=== PATIENT | male | born 1955 | race Caucasian/White ===

== ENCOUNTER → 2019-03-03 13:58 | Outpatient (CLI) | payer OTHER, SELFPAY ==
[2019-03-03 14:35] LABS: Add Manual Diff / Slide Review NO; Basophils Absolute Auto 0 /uL (0-100); Basophils Percent Auto 0.6 % (0-2); Eosinophils Absolute Auto 200 /uL (0-450); Hematocrit 46.3 % (41-53); Hemoglobin 15.9 g/dL (13.5-17.5); Lymphocytes Absolute Auto 1300 /uL (1100-4500); Mean Corpuscular HGB Conc 34.3 % (30-36); Mean Corpuscular Hemoglobin 28.3 PG (26-34); Mean Corpuscular Volume 82.6 fL (80-100); Monocytes Absolute Auto 800 /uL (0-900); Monocytes Percent Auto 11.8 % (3-14); Neutrophils Absolute Auto 4600 /uL (1500-7000); Neutrophils Percent Auto 66.6 % (50-75); Platelet Count 205 X10^3/uL (150-400); Red Blood Cell Count 5.61 X10^6/uL (4.5-5.9)
[2019-03-03 15:54] LABS: BUN Creatinine Ratio 16.4 (6-22); Blood Urea Nitrogen 18 mg/dL (9-20); Calcium 9.9 mg/dL (8.4-10.2); Carbon Dioxide 24 mmol/L (22-32); Chloride 105 mmol/L (98-107); Estimated Glomerular Filt Rate > 60.0 mL/min (>60); Glucose 87 mg/dL (80-110); HEMOLYSIS < 15 (0-50); Potassium 4.3 mmol/L (3.4-5.1); Sodium 140 mmol/L (137-145)
== END ==
PROVIDERS: PCP Physician Assistant Medical; Visit Provider Podiatrist
DX: Z01.818 Encounter for other preprocedural examination (principal)
CPT/HCPCS: 36415; 80048; 85025; 93005

== ENCOUNTER → 2021-09-18 08:02 | Outpatient (CLI) | payer MEDICARE, SELFPAY ==
--- NOTE | 2021-09-18 | DI.US.S_ITS ---
PROCEDURE: US PERIPH VENOUS LOW EXTREM RT INDICATIONS: RIGHT KNEE PAIN TECHNIQUE: Real-time imaging, as well as color and pulse Doppler interrogation, were performed of the lower extremity deep veins from the inguinal ligament to the popliteal fossa. COMPARISON: None. FINDINGS: The common femoral, femoral and popliteal veins are normally compressible, and free of intraluminal thrombus. Color and pulse Doppler demonstrate normal phasic intraluminal flow. There is normal augmentation response to distal compression maneuver. A 6.3 x 1.8 x 3.3 cm hypoechoic lesion is seen in the popliteal fossa, which does not demonstrate internal vascularity and may represent a Ramirez cyst. IMPRESSION: No evidence of DVT. Dictated by: Jamaal Villagran M.D. on 09/18/2021 at 9:05 Approved by: Jamaal Villagran M.D. on 09/18/2021 at 9:09
== END ==
PROVIDERS: PCP Internal Medicine; Referring Provider Orthopaedic Surgery; Visit Provider Orthopaedic Surgery
DX: M25.561 Pain in right knee (principal); M25.861 Other specified joint disorders, right knee
CPT/HCPCS: 93971

== ENCOUNTER → 2021-09-18 08:09 | Outpatient (CLI) | payer MEDICARE, SELFPAY ==
[2021-09-18 08:56] LABS: Add Manual Diff / Slide Review NO; Basophils Absolute Auto 100 /uL (0-100); Basophils Percent Auto 0.9 % (0-2); Eosinophils Absolute Auto 200 /uL (0-450); Hematocrit 42.6 % (41-53); Hemoglobin 14.8 g/dL (13.5-17.5); Lymphocytes Absolute Auto 1000 /uL (1100-4500); Lymphocytes Percent Auto 16.3 % (25-40); Mean Corpuscular HGB Conc 34.8 % (30-36); Mean Corpuscular Hemoglobin 28.5 PG (26-34); Mean Corpuscular Volume 81.8 fL (80-100); Monocytes Absolute Auto 800 /uL (0-900); Monocytes Percent Auto 13.3 % (3-14); Neutrophils Absolute Auto 3800 /uL (1500-7000); Neutrophils Percent Auto 65.5 % (50-75); Platelet Count 247 X10^3/uL (150-400); Red Blood Cell Count 5.21 X10^6/uL (4.5-5.9); Red Cell Distribution Width 13.5 % (11.6-14.8); White Blood Cell Count 5.8 X10^3/uL (4.5-11.0)
[2021-09-18 09:01] LABS: Hemoglobin A1C% w Est Avg Glu 5.8 % (4.0-6.0)
[2021-09-18 09:14] LABS: BUN Creatinine Ratio 19.7 (6-22); Blood Urea Nitrogen 24 mg/dL (9-20); Calcium 10.2 mg/dL (8.4-10.2); Carbon Dioxide 29 mmol/L (22-32); Chloride 103 mmol/L (98-107); Estimated Glomerular Filt Rate 59.4 mL/min (>60); Glucose 112 mg/dL (80-110); HEMOLYSIS < 15 (0-50); Potassium 4.5 mmol/L (3.4-5.1); Sodium 137 mmol/L (137-145)
[2021-09-18 10:49] LABS: Appearance Urine UA CLEAR; Bilirubin Urine UA NEGATIVE (NEGATIVE); Color Urine UA YELLOW; Glucose Urine UA NEGATIVE (Negative); Ketones Urine UA NEGATIVE (NEGATIVE); Leukocyte Esterase Urine UA NEGATIVE (NEGATIVE); Nitrite Urine UA NEGATIVE (Negative); Occult Blood Urine UA NEGATIVE (Negative); Protein Urine UA NEGATIVE (Negative); Urobilinogen Urine UA 0.2 E.U./dL (0.2); pH Urine UA 5.5 (4.5-8.0)
[2021-09-18 10:56] LABS: Bacteria Urine None Seen; Culture Indicated Urine Cult Not Indicated; RBC Urine None Seen (0-5/HPF); Urine Comments Microscopic Normal; WBC Urine None Seen (0-5/HPF)
== END ==
PROVIDERS: PCP Internal Medicine; Referring Provider Orthopaedic Surgery; Visit Provider Orthopaedic Surgery
DX: Z01.818 Encounter for other preprocedural examination (principal); R73.9 Hyperglycemia, unspecified; Z01.812 Encounter for preprocedural laboratory examination; N39.0 Urinary tract infection, site not specified; M25.561 Pain in right knee; M25.861 Other specified joint disorders, right knee
CPT/HCPCS: 36415; 80048; 81001; 83036; 85025; 93005; 93010; 93971

== ENCOUNTER → 2021-09-19 13:38 | Outpatient (CLI) | payer MEDICARE, SELFPAY ==
--- NOTE | 2021-09-19 | DI.MRI.S_ITS ---
PROCEDURE: MR KNEE RT WO CON INDICATIONS: Unilateral primary osteoarthritis, left knee TECHNIQUE: Noncontrast sagittal PD fast spin echo and T2 fast spin echo with fat saturation, sagittal 3-D FLASH with fat saturation; coronal T1 spin echo and PD fast spin echo with fat saturation, and axial PD fast spin echo with fat saturation through the knee. COMPARISON: [facility] [place], CR, XR KNEE 4+ VIEWS RIGHT, 09/13/2021, 15:18. FINDINGS: Image quality: Excellent. Menisci: The lateral meniscus is intact. Complex tear of the posterior horn, medial meniscus with extrusion. Cruciate ligaments: The anterior and posterior cruciate ligaments appear intact. Medial structures: Periligamentous MCL edema, compatible with grade 2 injury. Visualized portions of the pes anserinus tendons appear normal. Lateral structures: The lateral collateral ligament, long and short heads of the biceps femoris tendon appear intact. The popliteus tendon appears normal. A complex T2 hyperintense lesion is seen along the musculotendinous junction of the popliteus, which may reflect hematoma or ganglion. Iliotibial band appears normal. Anterior structures: The quadriceps and patellar tendons appear intact. Patellar alignment is normal. No femoral trochlear dysplasia or ventral trochlear prominence. No edema in the infrapatellar fat pad. T2 hyperintense signal is seen along the medial patellar retinaculum, and underlying the patellar attachment. Bones and cartilage: No bone marrow contusions or fractures. Deficiency of the medial compartment hyaline cartilage with subchondral edema, compatible with chronic osteochondral injury. Fissure is seen in the inner aspect of the medial femoral condyle hyaline cartilage. Signal heterogeneity of the lateral compartment hyaline cartilage with preservation of the thickness. Deficiency of the medial patella facet hyaline cartilage with small foci of underlying edema. Joint space: Moderate knee joint fluid. A 3.5 x 3.2 x 9.1 cm T2 hyperintense lesion is seen in the popliteal fossa, likely reflecting a Ramirez cyst. A 1.1 x 1.4 cm osseous lesion is seen posterior to the medial tibial plateau, which may reflect intra-articular body. IMPRESSION: 1. Partial disruption of the medial patellar retinaculum. 2. Complex tear of the posterior horn, medial meniscus with extrusion. 3. Grade 2 MCL injury 4. Moderate knee joint effusion. 5. Large Ramirez cyst. 6. Prominent subchondral edema and hyaline cartilage degeneration of the medial compartment articular surfaces. 7. Intra-articular body posterior to the medial tibial plateau. 8. Complex fluid along the popliteus muscle tendon junction, which may reflect a ganglion versus hematoma. Dictated by: Jamaal Villagran M.D. on 09/19/2021 at 15:31 Approved by: Jamaal Villagran M.D. on 09/19/2021 at 15:44
== END ==
PROVIDERS: PCP Internal Medicine; Referring Provider Orthopaedic Surgery; Visit Provider Orthopaedic Surgery
DX: S83.232A Complex tear of medial meniscus, current injury, left knee, initial encounter (principal); S83.412A Sprain of medial collateral ligament of left knee, initial encounter; M17.12 Unilateral primary osteoarthritis, left knee; M25.462 Effusion, left knee; M71.22 Synovial cyst of popliteal space [Baker], left knee
CPT/HCPCS: 73721

== ENCOUNTER → 2023-02-25 | Outpatient (CLI) | payer MEDICARE, SELFPAY ==
--- NOTE | 2023-02-25 | DI.MRI.S_ITS ---
PROCEDURE: MR CERVICAL SPINE WO CON INDICATIONS: Spinal stenosis, cervical region,Low back pain TECHNIQUE: Noncontrast sagittal T1 spin echo and T2 fast spin echo, sagittal STIR, foraminal oblique sagittal T2 fast spin echo, and axial gradient echo or T2 fast spin echo through the cervical spine. COMPARISON: None. FINDINGS: Image quality: Excellent. Alignment and Curvature: There is normal bony alignment. Bone Marrow: Marrow demonstrates normal overall signal. Spinal Cord: Visualized spinal cord has normal size and signal. No cerebellar tonsillar herniation. Paraspinous Soft Tissues: No paravertebral masses. Prevertebral soft tissues are normal in thickness. C2-C3: Bilateral uncovertebral osteoarthrosis. Shallow broad-based posterior disc osteophyte complex. No significant bilateral neuroforaminal stenosis. Mild spinal canal stenosis. C3-C4: Moderate bilateral uncovertebral osteoarthrosis and bilateral facet arthropathy. Broad-based posterior disc osteophyte complex. Moderate bilateral neuroforaminal stenosis with moderate spinal canal stenosis. No cord signal abnormalities. C4-C5: Mild bilateral uncovertebral osteoarthrosis and right greater than left bilateral facet arthropathy. Small broad-based posterior disc osteophyte complex. Moderate bilateral neuroforaminal stenosis with mild spinal canal stenosis. No cord signal abnormalities. C5-C6: Severe bilateral uncovertebral osteoarthrosis more pronounced on the left. Moderate bilateral facet arthropathy. There is a prominent eccentric to the left broad-based posterior disc osteophyte complex. Degenerative endplate changes and mild disc height loss. Moderate-severe bilateral neuroforaminal stenosis with moderate spinal canal stenosis. No cord signal abnormalities. C6-C7: Moderate-severe bilateral uncovertebral osteoarthrosis in moderate bilateral facet arthropathy. Prominent broad-based posterior disc osteophyte complex. Moderate degenerative endplate changes and endplate osteophyte formation. There is severe bilateral neuroforaminal stenosis in severe spinal canal stenosis at this level. No cord signal abnormality seen. C7-T1: Mild bilateral uncovertebral osteoarthrosis. No significant neuroforaminal or spinal canal stenosis. IMPRESSION: Moderate-severe multilevel, multifactorial cervical spondylosis as detailed above by vertebral body level. Findings are most severe at C6-7. Variable degrees of bony spinal canal stenosis without associated cord signal abnormalities. Dictated by: Damir Griffith M.D. on 02/25/2023 at 15:15 Approved by: Damir Griffith M.D. on 02/25/2023 at 15:30
--- NOTE | 2023-02-25 | DI.MRI.S_ITS ---
PROCEDURE: MR LUMBAR SPINE WO CON INDICATIONS: Spinal stenosis, cervical region,Low back pain TECHNIQUE: Noncontrast sagittal T1 spin echo and T2 fast echo, sagittal STIR, and T2 fast spin echo through the lumbar spine. In cases with scoliosis, additional coronal T2 fast spin echo may be performed. COMPARISON: [facility] [place], CR, XR LUMBAR SPINE 2 OR 3 VIEWS, 02/16/2023, 13:29. FINDINGS: Image quality: Excellent. Alignment and Curvature: Straightening normal lumbar lordosis. Minimal retrolisthesis L1 on L2 and L2 on L3 and L4 on L5. Grade 1 retrolisthesis of L5 on S1. Bone Marrow: Multilevel degenerative endplate changes. No acute vertebral body compression fractures. Spinal Cord: Conus medullaris terminates at the L1 level. Visualized cord demonstrates normal signal and size. Paraspinous Soft Tissues: No paravertebral masses. T12-L1: Disc desiccation, height loss and a small posterior disc bulge. Facet arthropathy and thickening of the ligamentum flavum. No central canal or neural foraminal stenosis. L1-L2: Disc desiccation, height loss and posterior disc bulge. Facet arthropathy, thickening of the ligamentum flavum and lipomatosis. This results in mild central canal stenosis and moderate bilateral neural foraminal stenosis. L2-L3: Severe disc desiccation, height loss and a posterior disc bulge. Facet arthropathy, thickening of the ligamentum flavum and epidural lipomatosis. This results in moderate central canal stenosis and mild bilateral neural foraminal stenosis. L3-L4: Disc desiccation, height loss and posterior disc bulge. Severe facet arthropathy, thickening of ligamentum flavum and epidural lipomatosis. This results in severe central canal stenosis, mild right and moderate left neural foraminal stenosis. L4-L5: Disc desiccation, height loss and a posterior disc bulge. Facet arthropathy and thickening of ligamentum flavum resulting in moderate central canal stenosis. There is severe bilateral neural foraminal stenosis. L5-S1: Disc desiccation, height loss and a posterior disc bulge resulting in mild central canal stenosis and severe narrowing of the right lateral recess with likely impingement of the descending right S1 nerve root. There is facet arthropathy. There is severe bilateral neural foraminal stenosis. IMPRESSION: 1. Multilevel degenerative changes of the cervical spine. There is multilevel central canal stenosis, severe at L3-L4. There is severe right lateral recess narrowing at L5-S1 with impingement of the descending right S1 nerve root. 2. Multilevel neural foraminal stenosis, worse at L4-L5 and L5-S1 with severe bilateral neural foraminal stenosis. 3. Additional multilevel degenerative changes as described above. Dictated by: Armand Walker M.D. on 02/25/2023 at 14:35 Approved by: Armand Walker M.D. on 02/25/2023 at 14:45
== END ==
LOC: MRI 11:12
PROVIDERS: PCP Registered Nurse; Referring Provider Physical Medicine & Rehabilitation; Visit Provider Physical Medicine & Rehabilitation
DX: M47.812 Spondylosis without myelopathy or radiculopathy, cervical region (principal); M48.02 Spinal stenosis, cervical region; M47.816 Spondylosis without myelopathy or radiculopathy, lumbar region; M47.817 Spondylosis without myelopathy or radiculopathy, lumbosacral region; M48.061 Spinal stenosis, lumbar region without neurogenic claudication; M48.07 Spinal stenosis, lumbosacral region; M54.50 Low back pain, unspecified
CPT/HCPCS: 72141; 72148

== ENCOUNTER → 2023-07-20 11:34 | Outpatient (CLI) | payer MEDICARE, SELFPAY ==
--- NOTE | 2023-07-20 | DI.CT.S_ITS ---
PROCEDURE: CT LUMBAR SPINE WO CON INDICATIONS: SPINAL STENOSIS, LUMBAR REGION TECHNIQUE: Noncontrast 0.8 mm thick sections acquired from the T12 level to the sacrum. Sagittal and coronal reformats were constructed. For radiation dose reduction, the following was used: automated exposure control. COMPARISON: [facility], MR, MR LUMBAR SPINE WO CON, 02/25/2023, 11:50. [facility] [place], CR, XR LUMBAR SPINE 2 OR 3 VIEWS, 02/16/2023, 13:29. FINDINGS: Image quality: This examination is limited by involuntary motion artifact. Bones: There is minimal levoconvex lumbar scoliotic curvature. Minimal retrolisthesis can be seen at L2-L3 and L5-S1. This patient has transitional lumbar anatomy. For the purposes of this examination, the level with the last disc space is considered to be L5-S1. By this numbering scheme, the L5 level is transitional and is partially sacralized. No acute vertebral body compression fractures. No suspicious lytic or blastic bony lesions. No pars defects. T12-L1: Bridging endplate osteophytes are seen. The disc height is relatively well preserved. Mild to moderate disc bulge is seen. Mild to moderate bilateral neural foraminal narrowing can be seen. No significant central canal narrowing is seen. L1-L2: At least moderate loss of disc height is seen. Vacuum disc phenomenon is seen at this level. Endplate irregularity and sclerosis can be seen. Moderate disc bulge is seen, which is eccentric to the left, with a left foraminal disc protrusion. Moderate facet joint hypertrophy is seen. Moderate to severe bilateral neural foraminal narrowing can be seen. At least moderate central canal narrowing is seen at this level. L2-L3: At least moderate loss of disc height is seen. Vacuum disc phenomenon is seen at this level. Moderate disc bulge is seen, with a central disc osteophyte protrusion. At least moderate facet hypertrophy is seen. Moderate to severe bilateral neural foraminal narrowing can be seen. Moderate to severe central canal narrowing is seen. L3-L4: [id number] loss of disc height is seen. Vacuum disc phenomenon is seen at this level. At least moderate disc bulge is seen. Moderate to prominent left-sided and moderate right-sided facet hypertrophy can be seen. Moderate to severe bilateral neural foraminal narrowing can be seen, left worse than right. Moderate to severe central canal narrowing is seen. L4-L5: [id number] loss of disc height is seen. Vacuum disc phenomenon is seen at this level. At least moderate disc bulge is seen, which is eccentric to the left. Prior right hemilaminectomy change can be seen. At least moderate facet hypertrophy is seen at this level. There is moderate to severe bilateral neural foraminal narrowing. Moderate to severe central canal narrowing is seen. L5-S1: At least moderate loss of disc height is seen. Mild vacuum disc phenomenon can be seen. Moderate disc bulge is seen, which is eccentric to the left. Uncovertebral joint hypertrophy is seen at this level. At least moderate facet hypertrophy is seen at this level. Moderate to severe bilateral neural foraminal narrowing can be seen. Prior postoperative change is seen, with prior right hemilaminectomy. Mild to moderate central canal narrowing is seen. Soft tissues: No retroperitoneal masses or hematomas. Visualized aorta is normal in caliber. Atherosclerotic calcification is noted. IMPRESSION: Multiple levels of significant lumbar spine degenerative change can be seen. Prior postoperative change, with right-sided hemilaminectomy at L4-L5 and L5-S1. Mild transitional lumbar anatomy, with a mild sacralized L5 level. Dictated by: Jose Grove M.D. on 07/20/2023 at 12:56 Approved by: Jose Grove M.D. on 07/20/2023 at 13:04
[2023-07-20 12:30] LABS: Add Manual Diff / Slide Review NO; Basophils Absolute Auto 0 /uL (0-100); Basophils Percent Auto 0.6 % (0-2); Eosinophils Absolute Auto 200 /uL (0-450); Eosinophils Percent Auto 2.9 % (2-4); Hematocrit 41.2 % (41-53); Hemoglobin 14.2 g/dL (13.5-17.5); Lymphocytes Absolute Auto 1200 /uL (1100-4500); Lymphocytes Percent Auto 17.5 % (25-40); Mean Corpuscular HGB Conc 34.3 % (30-36); Mean Corpuscular Hemoglobin 29.4 PG (26-34); Mean Corpuscular Volume 85.6 fL (80-100); Monocytes Absolute Auto 900 /uL (0-900); Monocytes Percent Auto 12.9 % (3-14); Neutrophils Absolute Auto 4500 /uL (1500-7000); Neutrophils Percent Auto 66.1 % (50-75); Platelet Count 240 X10^3/uL (150-400); Red Blood Cell Count 4.82 X10^6/uL (4.5-5.9); Red Cell Distribution Width 13.5 % (11.6-14.8); White Blood Cell Count 6.8 X10^3/uL (4.5-11.0)
[2023-07-20 12:43] LABS: Hemoglobin A1C% w Est Avg Glu 5.6 % (4.0-6.0)
[2023-07-20 13:12] LABS: BUN Creatinine Ratio 25.6 (6-22); Blood Urea Nitrogen 30 mg/dL (9-20); Calcium 10.2 mg/dL (8.4-10.2); Carbon Dioxide 26 mmol/L (22-32); Chloride 106 mmol/L (98-107); Estimated Glomerular Filt Rate > 60 mL/min (>60); Glucose 91 mg/dL (80-110); HEMOLYSIS < 15 (0-50); Potassium 4.8 mmol/L (3.4-5.1); Sodium 140 mmol/L (137-145)
== END ==
PROVIDERS: PCP Registered Nurse; Referring Provider Orthopaedic Surgery Orthopaedic Surgery of the Spine; Visit Provider Orthopaedic Surgery Orthopaedic Surgery of the Spine
DX: Z01.812 Encounter for preprocedural laboratory examination (principal); R73.9 Hyperglycemia, unspecified; Z01.818 Encounter for other preprocedural examination; M48.062 Spinal stenosis, lumbar region with neurogenic claudication; M47.816 Spondylosis without myelopathy or radiculopathy, lumbar region; M47.817 Spondylosis without myelopathy or radiculopathy, lumbosacral region; M43.27 Fusion of spine, lumbosacral region
CPT/HCPCS: 36415; 72131; 80048; 83036; 85025; 93005; 93010

== ENCOUNTER 2023-10-05 07:33 | Inpatient (IN) | payer MEDICARE, SELFPAY ==
[2023-09-28 09:51] VITALS: BMI 33.0
[2023-10-05] VITALS (23 sets, daily range): BP systolic 98–154; BP diastolic 47–93; PULSE 69–91; RESP 10–18; TEMP 35.6–36.9; O2SAT 92–99; BMI 33.0
--- NOTE | 2023-10-05 | DI.RAD.S_ITS ---
PROCEDURE: XR LUMBAR SPINE 2-3V INDICATIONS: TLIF L3-4,L4-5,L5-S1 TECHNIQUE: 5 intraoperative fluoroscopic views of the lumbar spine were acquired. COMPARISON: None. FINDINGS: 5 intraoperative fluoroscopic images of the lumbar spine demonstrates postsurgical changes of posterior spinal fusion of L3 through S1 with bilateral paraspinal rods and pedicular screw fixation. Interbody disc spacer devices noted at L3-4, L4-5, and L5-S1. IMPRESSION: Fluoroscopic support for discectomies and lumbar fusion of L3 through S1. Please see separate procedure note for further details. Dictated by: Damir Griffith M.D. on 10/05/2023 at 18:20 Approved by: Damir Griffith M.D. on 10/05/2023 at 18:23
--- NOTE | 2023-10-05 07:42 | P.HP_ITS ---
History of Present Illness History of Present Illness Date Patient Seen: 10/05/23 Time Patient Seen: 08:54 Date of Onset of Symptoms: 10/05/23 Chief complaint: INPT Narrative: 67-year-old male was previously evaluated for low back pain and leg pain. He reports a prior history of lumbar spine surgery approximately 30 years ago, at that time he had pain in the low back down the left lower extremity. He reports ongoing symptoms of left greater than right low back pain. He has pain radiating down his hip/buttocks, left worse than right. This is intermittent and typically worsens with twisting with activity. He is retired. He is a prior lumbar epidural steroid injection with good relief recently about 10 years ago. Recently has been doing oral medications without relief. He has failed conservative care with difficulty standing, walking for prolonged period of time due to worsening back pain and hip pain. [facility] Medical History Hearing impaired Epistaxis, recurrent MRSA (methicillin resistant Staphylococcus aureus) MRSA (methicillin resistant Staphylococcus aureus) (~2008) Right testicular cancer HLD (hyperlipidemia) HTN (hypertension) Shortness of breath Numbness Surgical History History of total right knee replacement (2021) Hx of arthroscopy of right knee (2017) Hx of shoulder surgery Hx of thumb surgery Hx of thumb surgery History of carpal tunnel surgery of left wrist History of carpal tunnel surgery of right wrist Hx of laminectomy (~1999) Hx of foot surgery Hx of foot surgery Hx of tonsillectomy History of urologic surgery (~2003) H/O vasectomy Hx of heart surgery (07/23/16) Social History household members: spouse Smoking Status: Former smoker alcohol intake: current Meds Home Medications and Allergies Home Medications Medication Instructions Recorded Confirmed Type amlodipine 10 mg tablet 10 mg PO DAILY 09/28/23 10/05/23 History aspirin 81 mg capsule 81 mg PO DAILY 09/28/23 10/05/23 History atenolol 25 mg tablet 12.5 mg PO BEDTIME 09/28/23 10/05/23 History atorvastatin 40 mg tablet 40 mg PO BEDTIME 09/28/23 10/05/23 History hydrochlorothiazide 25 mg tablet 25 mg PO DAILY 09/28/23 10/05/23 History losartan 100 mg tablet 100 mg PO DAILY 09/28/23 10/05/23 History naproxen sodium 220 mg tablet 440 mg PO DAILY PRN Pain 09/28/23 10/05/23 History spironolactone 25 mg tablet 25 mg PO BEDTIME 09/28/23 10/05/23 History Allergies Allergy/AdvReac Type Severity Reaction Status Date / Time bee venom protein (honey bee) Allergy Swelling Verified 10/05/23 07:40 at the site Review of Systems Review of Systems ROS: Yes All systems reviewed with the patient and are negative except as o therwise documented Exam Back/Spine/Pelvis Other: Painful lumbar ROM. Previous surgical scar well healed. Decreased lumbar lordosis. Skin intact. Neuro Other: + straight leg raise bilaterally, motor strength 4/5 left quadriceps, 4/5 bilat eral TA, 4/5 right plantarflexion. sensibility decreased to bilateral L5, left L3 and right S1 dermatomes. DTR diminished BLE. - clonus BLE. Assessment & Plan Assessment & Plan narrative: Mr. Bhandari is here for his scheduled lumbar surgery. He has severe spinal stenosis L3-S1 with neurogenic claudication. He had prior laminectomy L4-5, L5-S1 with epidural lipomatosis. I discussed treatment options with risks and benefits. He may benefit from L3-S1 TLIF surgery involving decompression and stabilization of his lumbar spine. I also discussed with him possibility of L3-4 laminectomies and decompression alone if we are able to decompress without destabilize this level. Risks for surgery include but not limited to bleeding, infection, nerve/dura/bladder/bowel/blood vessel injury, need for additional procedure, even . Patient understands and would like to proceed with surgery.
[2023-10-05] MEDS: LACTATED RINGERS 1,000 ML 100 ML IV ×2 (08:30→11:02)
[2023-10-05] MEDS: ACETAMINOPHEN 325 MG TABLET 975 MG PO ×2 (08:55→15:52)
[2023-10-05] MEDS: PREGABALIN 75 MG CAPSULE PO (08:56)
[2023-10-05] MEDS: CEFAZOLIN 2 GM/100 ML PREMIX 100 ML IV ×2 (09:41→17:53)
--- NOTE | 2023-10-05 10:10 | SUR.OPER ---
Prone on spine table, head in foam head support, padded chest and pelvic supports, gel pad at knees, lower legs supported by pillows; nipples, genitalia and toes free of pressure, arms secured on foam padded arm boards at <90 degrees abduction. Tape over blanket at thigh secured to table.
[2023-10-05] MEDS: BUPIVACAINE LIPOSOME 266 MG/20 ML VIAL INJ (10:17)
[2023-10-05] MEDS: BUPIVACAINE 0.25% (PF) 60 ML, EPINEPHrine 0.15 MG INJ (10:18)
--- NOTE | 2023-10-05 14:41 | P.OP_ITS ---
Operative Date/Time/Diagnoses Date of procedure: 10/05/23 Time of procedure: 09:45 Pre-op diagnosis: 1. L3-4, L4-5, L5-S1 spinal stenosis with neurogenic claudication 2. L3-4, L4-5, L5-S1 foraminal stenosis 3. History of L4-5, L5-S1 laminectomies with epidural scarring. Post-op diagnosis: same Procedure & Clinicians Procedure: 1. L3-4, L4-5, L5-S1 Postero-lateral and posterior interbody fusion 2. L3-4, L4-5, L5-S1 interbody cage placement. 3. L3-4, L4-5, L5-S1 decompressive laminectomy with bilateral facetecomies 4. L3-4, L4-5, L5-S1 Posterior segmental instrumentation 5. Hallam of bone marrow from iliac crest 6. Utilization of microsurgical technique and operating microscope 7. Utilization of robotic assisted navigation Same procedure as scheduled: Yes Indications: Patient has been having chronic back pain and worsening lumbar radiculopathy and symptoms of neurogenic claudication. Patient had prior L4-5 L5-S1 laminectomies more than 10 years ago with progressively worsening back pain and bilateral hip and leg pain left worse than right. The patient was found have severe central spinal stenosis at L3-4 and severe foraminal stenosis L3-4 L4-5 L5-S1 correlating with his symptoms. Patient failed multiple conservative management with worsening pain weakness and numbness in his lower extremity. Patient has been having difficulty performing activity of daily living. After discussing risks benefits of treatment options, patient elected proceed with surgery. Surgeon: Corinne Proctor Bus Transportation Manager: Wanda Daly Click Yes if Unassisted: No Anesthesia Type: General Operative Notes Closure Type: primary Specimen(s): none sent Prosthetic devices, grafts, tissues, transplants, or devices: Globus CREO MIS screws, Rise cages Applied: catheter Estimated Blood Loss (mL): 150 Blood products transfused: none Procedure in detail: Patient was seen in the preoperative area. Risks and benefits of the surgery was discussed with the patient. Informed consent was obtained from the patient and placed in the chart. Surgical site was marked. Patient was taken to the operative room. General anesthesia was administered. Prophylactic antibiotic was given to the patient less than 30 min before the incision was made. Patient was placed into a prone position on the Javier table. Patient's back was then prepped and draped in the sterile fashion. Time-out was performed at this time. After patient was prepped and draped, patient's PSIS was palpated and marked bilaterally. Small 1 cm incision was made over the PSIS for placement of the reference probes. Two trocar was placed into the PSIS 1 on each side. The reference probe was attached to the trocar of the reference apparatus. At this time the C-arm imaging was used to confirm AP and lateral of L3-4, L4- L5, L5-S1 vertebrae and merged the C-arm imaging using the Kadmon robotic navigation system with the CT of the lumbar spine. After successful merging was completed and confirmed, skin marker was used to angi out the skin incision using the Kadmon robotic arm. Bilateral incision was made at this time. Pre templated trajectory was used and guided using the Application Craft navigation system for bilateral L3, L4, L5, S1 pedicle screw placement. This was done by using the robotic arm to guide the high-speed bur to make a cortical entry point. Next a drill was placed also using the robotic arm and guided using the navigation system drilling partially through bilateral L3, L4, L5 and S1 pedicles. Next L3, L4, L5, S1 pedicle screws it was pre templated and measured was placed onto the power petroleum transport driver and inserted into the pedicles bilaterally. After all 8 screws were placed C-arm imaging was taken of both AP and lateral to confirm the placement. Excellent placement of the screws were confirmed and a matched precisely with the pre planned screw placement using the navigation system. MARs retractor was inserted using Kadmon nagivation guidence. Globus MARS retractors was placed inside the incision and docked onto the L3, L4 and L5 lamina. Using microsurgical technique and operating microscope, a L3, L4, L5 laminectomy and L3-4, L4-5, L5-S1 facetectomy was performed using a Kerrison rongeur. The laminectomy and facetectomy was performed in order to decompress patient's cauda equina as well as the nerve roots exiting at the L3-4, L4-5, L5- S1 level. Patient was found have severe lateral recess and neural foramen stenosis which was fully decompressed after the laminectomy facetectomy. At L3- 4 level patient was found have severe central and bilateral neural foraminal stenosis, which required laminectomy and total facetectomy in order to properly decompress. The decompression rendered the L3-4 level grossly unstable and required a fusion procedure at the same time. More than 75% of the facets were removed during the process of decompression for L4-5 L5-S1 foraminal stenosis which rendered L4-5, L5-S1 level grossly unstable and required a fusion procedure at the same time. The disc space at L3-4, L4-5, L5-S1 was identified, and a total diskectomy was performed at L3-4, L4-5, L5-S1 level. The endplates were decorticated using a rasp and shaver. The total diskectomy and decortication was performed at L3-4, L4-5, L5-S1 level in order to to accomplish a L3-4, L4-5, L5-S1 fusion. The local bone from the laminectomy and facetectomy was saved for local bone grafting. After the total diskectomy and decortication was completed, Trifecta bone graft material was combined with local bone that was harvested earlier. At this time, a separate skin is incision was made over the iliac crest. A [employer] needle was inserted into the iliac crest through a separate skin incision. 5 cc of bone marrow aspiration was obtained through the separate skin incision using a Jamshidi needle from the iliac crest. The bone marrow aspiration was combined with local bone and the Trifecta bone grafting material. The bone grafting material was placed into the L3-4, L4-5, L5-S1 interbody space along with a expandable cage. The cage was expanded to its maximum height using the torque limiting screwdriver. The disc preparation as well as the cage insertion were also performed under navigation guidance. After the cage was placed, AP and lateral C-arm imaging was taken to confirm placement of the cage and excellent position was confirmed. Globus MARS retractor was inserted and docked onto the L3-4, L4-5, L5-S1 posterolateral gutter on the right side. Using the power drill, posterior- lateral decortication was performed at L3-4, L4-5, L5-S1 level until bleeding cortical bone was identified. The remaining bone grafting material was placed into the L3-4, L4-5, L5-S1 posterior lateral gutter he order to accomplish posterolateral fusion at the L3-4, L4-5, L5-S1 level. At this time the tulips were attached to the L3, L4, L5, S1 pedicle screw shanks. After measuring the length of the rods, they were inserted into the tulips of the pedicle screws and locked in place using locking caps and torque limiting screwdriver bilaterally. Total 6 caps and 2 titanium rods was used in order to complete the posterior instrumentation construct. After all the hardware was placed, and confirmed with AP and lateral C-arm imaging, the wound was then irrigated with sterile normal saline and packed with Ray-Benito gauze for 3 min to accomplish hemostasis. After the gauze was removed the deep fascia was closed with #1 Vicryl suture. The subcutaneous layer was closed with 2-0 Vicryl. The skin was closed with skin todd. Patient tolerated the procedure well. There were no complications. Neuro monitoring system was used to monitor patient's neurologic status throughout entire procedure. There was no disturbance of the neural monitoring signals throughout the case. Complications: none Post-operative Condition: stable Disposition: PACU Plan for aftercare: Admit to inpatient hospital
[2023-10-05] MEDS: OXYCODONE IR 5 MG TABLET PO ×2 (15:37→16:08)
[2023-10-05] MEDS: hydrOXYzine 50 MG/ML INJ 25 MG IM (15:38)
[2023-10-05] MEDS: HYDROMORPHONE 1 MG INJ IV (15:51)
[2023-10-05] MEDS: HYDROMORPHONE 0.5 MG INJ IV (17:49)
[2023-10-05] MEDS: LACTATED RINGERS 1,000 ML 125 ML IV ×2 (17:55→18:36)
--- NOTE | 2023-10-05 18:59 | PC.NURSE ---
Patient given iv dilaudid a bit earlier and this has helped patient to relax. He had a L3-S1 TLIF. Dressing is cdi with no drainage present. Patient using ice pack. He states that his throat is soar from ET tube but is able to rest. Patient knows to not bend, twist or lift and log roll. He had his cefazolin and LR at 125cc/hr infusing and tolerating well.
[2023-10-05] MEDS: DOCUSATE 100 MG CAPSULE PO (21:14)
[2023-10-05] MEDS: ATORVASTATIN 20 MG TABLET 40 MG PO (21:14)
[2023-10-05] MEDS: SENNOSIDES 8.6 MG TABLET 17.2 MG PO (21:14)
[2023-10-05] MEDS: ACETAMINOPHEN 325 MG TABLET 650 MG PO (21:16)
--- NOTE | 2023-10-05 22:12 | PC.NURSE ---
Addendum entered by Dania Garay R.N. 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 BP soft, BP meds held. Dressing on back was saturated with sanguinous drainage, drsg changed @ 2100 per coordinator. Reassessed drsg @ 2200, partial saturation of drsg noted. VSS: BP 126/62, HR 70, O2 96% on RA. Patient denies dizziness/weakness. Notified MD Linton, recommended to reinforce drsg as needed. H/H lab draw ordered for 0500. Plan of care ongoing.
[2023-10-05] MEDS: OXYCODONE IR 10 MG TABLET PO (23:15)
[2023-10-06] MEDS: CEFAZOLIN 2 GM/100 ML PREMIX 100 ML IV (00:52)
[2023-10-06] MEDS: LACTATED RINGERS 1,000 ML 125 ML IV (02:44)
[2023-10-06 04:03] VITALS: BP 120/67; PULSE 79; RESP 16; TEMP 36.3; O2SAT 93
[2023-10-06] MEDS: ACETAMINOPHEN 325 MG TABLET 650 MG PO (05:02)
[2023-10-06 05:17] LABS: Hematocrit 35.3 % (41-53); Hemoglobin 12.5 g/dL (13.5-17.5)
--- NOTE | 2023-10-06 07:31 | PM.PNPO.1 ---
Subjective Subjective Date Patient Seen: 10/06/23 Time Patient Seen: 07:32 Interval history: Pain is moderate. Denies fever chills. No nausea vomiting. Patient's is home to assist him. Patient has not yet been out of bed. Exam Vital Signs (past 8 hours): - 10/06/23 04:03 Temperature 97.4 F L Pulse Rate 79 Respiratory Rate 16 Blood Pressure 120/67 Pulse Oximetry 93 Oxygen Flow Rate 0 Oxygen Delivery Method Room Air Oxygen Flow Rate 0 Narrative Exam Narrative: 68-year-old male resting comfortably in bed in no apparent distress. Veras catheter in place. Neurovascular status is intact bilateral lower extremities. Const General: cooperative and comfortable Nutritional Appearance: average body habitus Orientation: alert Resp Effort & Inspection: normal respiratory effort and able to speak in complete sentences Objective Labs 10/06/23 04:38 Labs: Laboratory Results - last 24 hr 10/06/23 04:38 Hgb 12.5 L Hct 35.3 L PFSH Medical History Hearing impaired Epistaxis, recurrent MRSA (methicillin resistant Staphylococcus aureus) MRSA (methicillin resistant Staphylococcus aureus) (~2008) Right testicular cancer HLD (hyperlipidemia) HTN (hypertension) Shortness of breath Numbness Surgical History History of total right knee replacement (2021) Hx of arthroscopy of right knee (2018) Hx of shoulder surgery Hx of thumb surgery Hx of thumb surgery History of carpal tunnel surgery of left wrist History of carpal tunnel surgery of right wrist Hx of laminectomy (~1999) Hx of foot surgery Hx of foot surgery Hx of tonsillectomy History of urologic surgery (~2003) H/O vasectomy Hx of heart surgery (07/23/16) Social History household members: spouse Smoking Status: Former smoker alcohol intake: current Assessment & Plan Post-op Postoperative Procedures: Procedures Operation Date: 10/05/23 09:15 Actual Procedure Side Surgeon p L3-4, L4-5, L5-S1 with posterior instrumentation-Robot Corinne Proctor MD Postoperative day: 1 Postoperative status: doing well Postoperative plan: routine post-op care Postoperative plan narrative: Discontinue Veras catheter Mobilize with physical therapy, limit bending, twisting, lifting Disposition possibly home today or tomorrow Quality VTE Deep Vein Thrombosis/Pulmonary Embolism Present on Admission: No
[2023-10-06] MEDS: AMLODIPINE 5 MG TABLET 10 MG PO (08:52)
[2023-10-06 08:53] VITALS: BP 136/54; PULSE 76
[2023-10-06] MEDS: LOSARTAN 50 MG TABLET 100 MG PO (08:53)
[2023-10-06] MEDS: DOCUSATE 100 MG CAPSULE PO (08:54)
[2023-10-06] MEDS: hydroCHLOROthiazide 25 MG TABLET PO (08:54)
[2023-10-06] MEDS: OXYCODONE IR 10 MG TABLET PO (09:30)
--- NOTE | 2023-10-06 09:40 | PT.IIE ---
Current Diagnoses Spondylolisthesis, lumbar region (10/05/23) Spinal stenosis, lumbar region with neurogenic claudication (10/05/23) Surgery Performed Operation Date: 10/05/23 09:15 Actual Procedures p L3-4, L4-5, L5-S1 with posterior instrumentation-Robot - Corinne Proctor MD Surgical History (Last Reviewed 10/06/23 @ 07:32 by Sawyer Blair PA-C) H/O vasectomy History of carpal tunnel surgery of left wrist History of carpal tunnel surgery of right wrist History of total right knee replacement (2021) History of urologic surgery (~2003) Hx of arthroscopy of right knee (2017) Hx of foot surgery Hx of foot surgery Hx of heart surgery (07/23/16) Hx of laminectomy (~1999) Hx of shoulder surgery Hx of thumb surgery Hx of thumb surgery Hx of tonsillectomy Medical History (Last Reviewed 10/06/23 @ 07:32 by Sawyer Blair PA-C) Epistaxis, recurrent Hearing impaired HLD (hyperlipidemia) HTN (hypertension) MRSA (methicillin resistant Staphylococcus aureus) (~2008) MRSA (methicillin resistant Staphylococcus aureus) Numbness Right testicular cancer Shortness of breath Physical Therapy Inpatient Evaluation/Re-Eval M1 PT/OT-IP Prior Functional Status Start: 10/06/23 12:27 Freq: NEEDED Status: Active Protocol: Document 10/06/23 09:40 AB (Rec: 10/06/23 12:37 AB [id number]) Medical Review Prior Functional Status Medical History Reviewed Yes Communication able to make needs known Mobility and Gait pt stated that he was independent with all mobilities and ambulation wihtout AD Activities of Daily Living and IADL's per OT note: Pt states had pain and difficulty to complete IADL needs. Social History Household Members spouse Living Arrangements House Number of Floors (Floors) One Floor Number of Stairs To Enter/Railing? ramp to enter Home Environment High Toilet,Walk in Shower, Ramp Home Equipment Front Wheel Walker,Shower Seat without Backrest M2 PT-IP Current Condition Start: 10/06/23 12:27 Freq: NEEDED Status: Active Protocol: Document 10/06/23 09:40 AB (Rec: 10/06/23 12:37 AB [id number]) Physical Therapy Current Condition Current Condition Evaluation Date 10/06/23 Treatment Diagnosis s/p L3-4, L4-5, L5S1 TLIF; difficulty in walking Onset Date 10/05/23 M3 PT-IP Subjective Start: 10/06/23 12:27 Freq: NEEDED Status: Active Protocol: Document 10/06/23 09:40 AB (Rec: 10/06/23 12:37 AB [id number]) Subjective Physical Therapy Visit Type Type Initial Evaluation Visit Start Time 09:40 Visit Stop Time 10:15 Number of RAIL ASSEMBLER Visits 35 Physical Therapy Visit Comments Patient Comments agreeable to do PT Therapy Pain Assessment Pain When Pain Assessed At Rest Pain Present Pain Present Pain Reported Location low back Scale Used pain scale not stated Pain Management Techniques Modification of Treatment,Re- positioning,Timing of Activity with Medications M4 PT-IP Mobility and Gait Start: 10/06/23 12:27 Freq: NEEDED Status: Active Protocol: Document 10/06/23 09:40 AB (Rec: 10/06/23 12:37 AB [id number]) PT-Bed Mobility Assessment Rolling Type of Rolling Log Rolling Level of Assist Standby Assistance Supine to Sit Supine to Sit Standby Assistance Sit to Supine Sit to Supine Standby Assistance PT-Transfer Assessment Sit to and From Stand Sit to and from Stand Standby Assistance,Contact Guard Assistance,1 Person Assistance,Use of Upper Extremities Equipment Transfer Assistive Device Gait Belt,Front Wheeled Walker Orthotic/Prosthetic Devices or Brace: No Transfers Transfer Destination Chair Transfer Technique ambulated Transfer Ability Level of Assist Standby Assistance,Contact Guard Assistance,1 Person Assistance,Use of Upper Extremities Comments Mobility Comments pt supine in bed. OT and student nurs in room. OT left and PT took over pt's care. Pt wants to sit up to take his medication. reviewed back precautions with pt and log roll bed mobility prior to getting up. BP: 133/70 in supine pt completed log roll supine to sit SBA with cues. pt sat on EOB SBA. student nurse provided meds. informed nurse regarding dressing change. obtained PLOF and home set up from pt. pt completed sit to stand from EOB CGA and ambulated in room ~ 20 ft CGA. pt sat on the chair. reviewed post-op folder contents and log roll bed mobility. pt completed sit to stand from the chair SBA and ambulated in room using fWW SBA ~ 50 ft. pt sat on EOB. completed log roll bed mobility SBA without cues provided. pt transferred to chair using fWW SBA. pt without without further concerns. Gait Assessment Gait Gait Assistance Required: Standby Assistance,Contact Guard Assist Distance (Feet) 50 Able to Maintain Weight Bearing Status Yes During Gait Assistive Devices Assistive Device Gait Belt,Front Wheeled Walker Orthotic/Prosthetic Devices or Brace: No Factors Limiting Gait Function Factors Limiting Gait Function Decreased Strength,Limited Range of Motion,Pain,Poor Balance PT-Balance Assessment Sitting Balance and Reactions Static Sitting Balance Ability Normal Dynamic Sitting Balance Ability Good Standing Balance and Reactions Static Standing Balance Ability Fair Dynamic Standing Balance Ability Fair Device Used FWW M5 PT-IP Objective Assessments Start: 10/06/23 12:27 Freq: NEEDED Status: Active Protocol: Document 10/06/23 09:40 AB (Rec: 10/06/23 12:37 AB [id number]) Orientation Orientation/Cognition Level of Alertness Alert Orientation Name,Place,Situation Safety Awareness Understands Safety Issues Memory Description No Deficits Noted Gross Range of Motion Lower Extremity ROM Assessment Within Functional Limits Strength Lower Extremity Strength Assessment Within Functional Limits Sensation Assessment Sensation Gross Sensation Right LE Impaired,Left LE Impaired Sensation Description Numbness,Tingling Comments Sensation Comments B upper thighs: slight tingling/numbness Muscle Tone Muscle Tone WNL Yes M6 PT-IP Treatment Start: 10/06/23 12:27 Freq: NEEDED Status: Active Protocol: Document 10/06/23 09:40 AB (Rec: 10/06/23 12:37 AB [id number]) Physical Therapy Treatment Education Education Provided Precautions,Weight Bearing Status,Post-Op Packet,Safety M7 PT-IP Assessment and Plan Start: 10/06/23 12:27 Freq: NEEDED Status: Active Protocol: Document 10/06/23 09:40 AB (Rec: 10/06/23 12:37 AB [id number]) PT Summary Assessment and Plan Potential Rehabilitation Potential Good Status of Condition at Evaluation Stable Summary Impairments Pain,ROM,Strength,Balance, Coordination,Sensation,Bed Mobility,Transfers,Gait, Activity Tolerance Assessment Summary pt is a 68 y/o M s/p L3-4, L4- 5, L5S1 TLIF POD 1. pt requiring SBA with mobility using FWW and plans to go home and spouse to assist him when needed. pt may go home when medically stable. Goals Bed Mobility Goal Independent Transfer Goal Independent,Front Wheeled Walker Gait Goal Independent,Front Wheel Walker Gait Distance 200 Days to Meet Goals 5 Frequency of Treatment Frequency Of Treatment Twice a Day Treatment Plan Physical Therapy Treatment Plan Bed Mobility Training,Transfer Training,Gait Training, Therapeutic Exercise,Balance Retraining,Post Op Education, Discharge Planning,Hot or Cold Pack,Neuromuscular Re-ed, Coordination Retraining,Manual Therapy Precautions Lumbar Precautions Log Roll,No Twisting,Limit Bending,Lifting Restriction of 10 lbs,Gait Belt above Incisional Area Recommendations To Nursing Amount of Assist Needed 1 Person Assist Discharge Recommendations PT Discharge Recommendations Home with Assistance Transportation Needs at Discharge Private Vehicle
--- NOTE | 2023-10-06 10:37 | OT.IP.EVAL ---
Current Diagnoses Spondylolisthesis, lumbar region (10/05/23) Spinal stenosis, lumbar region with neurogenic claudication (10/05/23) Surgery Performed Operation Date: 10/05/23 09:15 Actual Procedures p L3-4, L4-5, L5-S1 with posterior instrumentation-Robot - Corinne Proctor MD Past Medical History (Last Reviewed 10/06/23 @ 07:32 by Sawyer Blair PA-C) Epistaxis, recurrent Hearing impaired HLD (hyperlipidemia) HTN (hypertension) MRSA (methicillin resistant Staphylococcus aureus) (~2008) MRSA (methicillin resistant Staphylococcus aureus) Numbness Right testicular cancer Shortness of breath Surgical History (Last Reviewed 10/06/23 @ 07:32 by Sawyer Blair PA-C) H/O vasectomy History of carpal tunnel surgery of left wrist History of carpal tunnel surgery of right wrist History of total right knee replacement (2021) History of urologic surgery (~2003) Hx of arthroscopy of right knee (2017) Hx of foot surgery Hx of foot surgery Hx of heart surgery (07/23/16) Hx of laminectomy (~1999) Hx of shoulder surgery Hx of thumb surgery Hx of thumb surgery Hx of tonsillectomy Occupational Therapy Inpatient Evaluation/Re-Eval M1 PT/OT-IP Prior Functional Status Start: 10/06/23 10:37 Freq: NEEDED Status: Active Protocol: Document 10/06/23 10:37 [facility] (Rec: 10/06/23 10:50 [facility] [id number]) Medical Review Prior Functional Status Medical History Reviewed Yes Communication Independent Mobility and Gait Pt had to take break when walking to his garage 100ft away. Activities of Daily Living and IADL's Pt states had pain and difficulty to complete IADL needs. Social History Household Members spouse Living Arrangements House Number of Floors (Floors) One Floor Number of Stairs To Enter/Railing? Pt has a ramp and 3 platform steps to be able to enter his house. Home Environment High Toilet,Walk in Shower Home Equipment Front Wheel Walker,Straight Cane,Shower Seat without Backrest,Strike On Machine Operator Additional Social History Comment Pt's to be off of work for the week to assist the pt. Pt concerned will not be able to use the ramp at home due to the snow and wanting to use the steps to enter the house instead- therefore to inform PT that pt wanting to practice the steps. M2 OT-IP Current Condition Start: 10/06/23 10:37 Freq: Status: Active Protocol: Document 10/06/23 10:37 [facility] (Rec: 10/06/23 10:50 [facility] [id number]) Occupational Therapy Current Condition Current Condition Evaluation Date 10/06/23 Treatment Diagnosis S/P L3-4, L4-5 with posterior instru Diagnosis Onset Date 10/05/23 Post Operative Precautions Lumbar Precautions Log Roll,No Twisting,Limit Bending,Lifting Restriction of 10 lbs,Gait Belt above Incisional Area M3 OT- IP Subjective and Pain Start: 10/06/23 10:37 Freq: Status: Active Protocol: Document 10/06/23 10:37 [facility] (Rec: 10/06/23 10:50 [facility] [id number]) OT- Subjective Occupational Therapy Visit Type Type Initial Evaluation Visit Start Time 09:25 Visit Stop Time 10:37 Notes Pt seen from [id number] and 1015- 1037. Occupational Therapy Visit Comments Patient Comments Pt agreed to do OT eval. Patient/Caregiver Goals TO go home. OT Pain Assessment Pain When Pain Assessed During Mobility Pain Present Pain Present Pain Reported Location low back Intensity 4 Scale Used Numeric (0 - 10) M4 OT- IP ADL's Start: 10/06/23 10:37 Freq: Status: Active Protocol: Document 10/06/23 10:37 [facility] (Rec: 10/06/23 10:50 [facility] [id number]) OT MEA-Mdyf-Rsljfai General Evaluation Self-Feeding Ability Independent OT ADL-Grooming General Evaluation Grooming Ability Standby Assistance Areas Needing Assistance Retrieving/Set-up of Grooming Items Comments OT Grooming Comments Able to do while standing with FWW. OT ADL-Oral Care General Eval Oral Care Ability Independent Comments Oral Care Comments While standing. OT ADL-Dressing General Eval Lower Body Dressing Ability Moderate Assistance Comments OT Dressing Comments Pt will need assist for socks and shoes. Pt states has a rn case manager hospice to assist him. Pt not wanting to be shown a sock aid and states his to assist him. Pt states will just be barefooted at home. OT ADL-Toileting General Evaluation Toileting Ability Total Assistance Comments OT Toileting Comments Veras in place. Able to to practice pt with the FWW over the toilet and pt able to sit down to the toilet with good safety and follow through of his back precautions. OT ADL-Bathing Comments OT Bathing Comments Educated of care for showering needs of the bandage. M5 OT- IP IADL's Start: 10/06/23 10:37 Freq: Status: Active Protocol: Document 10/06/23 10:37 [facility] (Rec: 10/06/23 10:50 [facility] [id number]) OT-Instrumental Activities of Daily Living Deficits IADL Deficits Identified Deficits Home Safety Awareness Awareness of Need for Assistance at Home Good Awareness Ability to Problem Solve Emergency Able to Problem Solve Situations Medication Management Medication Management No Deficits Identified Money Management Money Management No Deficits Identified Meal Preparation Meal Preparation Caregiver Provides Assist Chemistry Physics Teacher Chemistry Physics Teacher Caregiver Provides Assist M6 OT- IP Functional Cognition Start: 10/06/23 10:37 Freq: Status: Active Protocol: Document 10/06/23 10:37 [facility] (Rec: 10/06/23 10:50 [facility] [id number]) Cognitive Factors Limiting Selfcare Function Cognitive Ability Level of Alertness Alert Patient Orientation Name,Age,Birthday,Month,Date, Year,Day of Week,Place, Situation Attention Span Ability Capable of Focused Attention, Capable of Sustained Attention Ability to Follow Commands Able to Follow Multi-Step Commands Memory Description No Deficits Noted Cognitive Comments Cognitive Assessment Comments Pt intact and able to follow his back precautions safety for all back precautions needs . OT- Vision and Hearing OT- Hearing Assessment OT- Hearing Assessment Hearing Impaired,Use of Hearing Aids OT- Vision Assessment Visual Acuity Glasses All The Time Visual Attentiveness WFL Occular Pursuits WFL M7 OT- IP Mobility and Balance Start: 10/06/23 10:37 Freq: Status: Active Protocol: Document 10/06/23 10:37 [facility] (Rec: 10/06/23 10:50 [facility] [id number]) OT-Transfer Assessment Sit to and From Stand Sit to and from Stand Contact Guard Assistance Transfers Transfer Ability Contact Guard Assistance Technique Transfer Destination Bed,Toilet Transfer Technique Stand Step Pivot Devices Transfer Assistive Devices Gait Belt,Front Wheeled Walker Comments Mobility Comments CGA to SBA to stand and SBA once up on his feet with the FWW. OT- Balance Assessment Sitting Balance and Reactions Static Sitting Balance Ability Normal Dynamic Sitting Balance Ability Good Standing Balance and Reactions Static Standing Balance Ability Good Dynamic Standing Balance Ability Good M8 OT- IP Objective Assessments Start: 10/06/23 10:37 Freq: Status: Active Protocol: Document 10/06/23 10:37 [facility] (Rec: 10/06/23 10:50 [facility] [id number]) OT Gross Range of Motion Upper Extremity Range of Motion ROM Impairments WFL for needs. M9 OT- IP Assessment and Plan Start: 10/06/23 10:37 Freq: Status: Active Protocol: Document 10/06/23 10:37 [facility] (Rec: 10/06/23 10:50 [facility] [id number]) OT Summary Assessment and Plan Potential Rehabilitation Potential Excellent Analytic Complexity at Evaluation Low Summary OT Impairments Pain,Functional Mobility, Dressing,Toileting,Bathing, Toilet Transfers,Shower Transfers Progress Towards Goals Progressing Toward Goals Assessment Summary Pt low complexity and main barriers are pain, steps and will need assist for LB dressing and showering needs initially at home. Pt has a supportive to assist him at home when medically stable. Goals Grooming Goal Independent Dressing Goal Minimal Assistance Toileting Goal Independent Bathing Goal Standby Assistance Toilet Transfer Goal Independent Shower Transfer Goal Standby Assistance Days to Meet Goals 3 Frequency of Treatment Frequency Of Treatment Once a Day Treatment Plan OT Treatment Plan ADL Training,Functional Mobility,Patient/Family Education,Discharge Planning Discharge Recommendations OT Discharge Recommendations Home with Assistance Transportation Needs at Discharge Private Vehicle
--- NOTE | 2023-10-06 11:04 | PM.DS.1 ---
History of Present Illness History of Present Illness Date Patient Seen: 10/06/23 Time Patient Seen: 11:04 Chief complaint: Back pain Narrative: See progress note Discharge Providers Provider Date of admission: 10/05/23 07:33 Discharge Date: 10/06/23 Primary care physician: SUDHIR Monique Consults: 09/29/23 08:53 Consult to Anesthesiology Routine Comment: Consulting Provider: Anesthesiologist Reason for consultation: PAC courtesy re: Cardiac history 10/05/23 16:56 Consult to Occupational Therapy Evaluate & Treat Comment: Physician Instructions: Evaluate and treat Consult to Physical Therapy Evaluate & Treat Comment: Physician Instructions: Evaluate and Treat Discharge provider: Sawyer Blair PA-C Summary Hospital Course Discharge Diagnosis: 1. L3-4, L4-5, L5-S1 spinal stenosis with neurogenic claudication 2. L3-4, L4-5, L5-S1 foraminal stenosis 3. History of L4-5, L5-S1 laminectomies with epidural scarring. Hospital Course: 1. L3-4, L4-5, L5-S1 Postero-lateral and posterior interbody fusion 2. L3-4, L4-5, L5-S1 interbody cage placement. 3. L3-4, L4-5, L5-S1 decompressive laminectomy with bilateral facetecomies 4. L3-4, L4-5, L5-S1 Posterior segmental instrumentation 5. [place] of bone marrow from iliac crest 6. Utilization of microsurgical technique and operating microscope 7. Utilization of robotic assisted navigation Same procedure as scheduled: Yes Indications: Patient has been having chronic back pain and worsening lumbar radiculopathy and symptoms of neurogenic claudication. Patient had prior L4-5 L5-S1 laminectomies more than 10 years ago with progressively worsening back pain and bilateral hip and leg pain left worse than right. The patient was found have severe central spinal stenosis at L3-4 and severe foraminal stenosis L3-4 L4-5 L5-S1 correlating with his symptoms. Patient failed multiple conservative management with worsening pain weakness and numbness in his lower extremity. Patient has been having difficulty performing activity of daily living. After discussing risks benefits of treatment options, patient elected proceed with surgery. Surgeon: Corinne Proctor Configuration Specialist: Wanda Daly Click Yes if Unassisted: No Anesthesia Type: General Operative Notes Closure Type: primary Specimen(s): none sent Prosthetic devices, grafts, tissues, transplants, or devices: Globus CREO MIS screws, Rise cages Applied: catheter Estimated Blood Loss (mL): 150 Blood products transfused: none Patient admitted for the above-mentioned procedure. Patient consented to the same. Patient underwent L3-L4, L4-L5, L5-S1 fusion October 05, 2023. Patient in his room recovering well as in stable condition. Veras catheter has been discontinued. Patient has been up with physical therapy. Patient has assistance at home. Patient will be discharged home today in stable condition. Exam Vital Signs (past 8 hours): - 10/06/23 04:03 10/06/23 08:53 Temperature 97.4 F L Pulse Rate 79 76 Respiratory Rate 16 Blood Pressure 120/67 136/54 L Pulse Oximetry 93 Oxygen Flow Rate 0 Oxygen Delivery Method Room Air Oxygen Flow Rate 0 Narrative Exam Narrative: See progress note Objective Labs 10/06/23 04:38 Labs: Laboratory Results - last 24 hr 10/06/23 04:38 Hgb 12.5 L Hct 35.3 L PFSH Medical History Hearing impaired Epistaxis, recurrent MRSA (methicillin resistant Staphylococcus aureus) MRSA (methicillin resistant Staphylococcus aureus) (~2008) Right testicular cancer HLD (hyperlipidemia) HTN (hypertension) Shortness of breath Numbness Surgical History History of total right knee replacement (2021) Hx of arthroscopy of right knee (2017) Hx of shoulder surgery Hx of thumb surgery Hx of thumb surgery History of carpal tunnel surgery of left wrist History of carpal tunnel surgery of right wrist Hx of laminectomy (~1999) Hx of foot surgery Hx of foot surgery Hx of tonsillectomy History of urologic surgery (~2003) H/O vasectomy Hx of heart surgery (07/23/16) Social History household members: spouse Smoking Status: Former smoker alcohol intake: current Discharge Assessment & Plan Assessment and Plan Assessment: Patient progressing as expected Plan of Treatment: Multimodal pain management Short walks several times per day, limit bending, twisting, lifting Keep dressing clean and dry Follow up outpatient orthopedic clinic in 2 weeks Discharge home today in stable condition Discharge Plan Discharge orders & Medications Discharge Orders: Discharge (Order); Ordered 10/06/23 Ordered By: Sawyer Blair Prescriptions: New acetaminophen 325 mg Tablet 650 mg PO Q6H PRN (Reason: Fever/Mild Pain (1-3)) Qty: 60 0RF polyethylene glycol 3350 17 gram Powder In Packet 17 g PO DAILY PRN (Reason: Constipation) Qty: 14 0RF oxycodone 5 mg tablet 5 mg PO Q4H PRN (Reason: pain) Qty: 30 0RF Rx Instructions: post op pain Continued atorvastatin 40 mg Tablet 40 mg PO BEDTIME atenolol 25 mg Tablet 12.5 mg PO BEDTIME spironolactone 25 mg Tablet 25 mg PO BEDTIME amlodipine 10 mg Tablet 10 mg PO DAILY hydrochlorothiazide 25 mg Tablet 25 mg PO DAILY losartan 100 mg Tablet 100 mg PO DAILY aspirin 81 mg Capsule 81 mg PO DAILY Discontinued naproxen sodium 220 mg Tablet 440 mg PO DAILY PRN (Reason: Pain) Follow up/Referrals: Luz Marina Wiggins FNP-C [Primary Care Provider] - Corinne Proctor MD [Physician] - 10/20/23 3:00 pm (Follow up w/ Wanda Daly PA-C, at [facility] in [place].) Diet/Activity/Treatments Diet: Diet as Tolerated Activity: No deep bending or twisting at the waist. No lifting more than 10 pounds. Cold/Heat Therapy: Heating pad to low back as needed for pain. Skin/Wound/Dressing Care Report to your healthcare provider any signs of infection, such as:: chills, fever, night sweats, unusual drainage and unusual redness Dressing: May shower. Keep dressing as dry as possible. If dressing becomes wet or dirty, may remove and replace with clean, dry gauze. No bathing or otherwise soaking incisions. Do not apply any creams, lotions, or ointments to incisions. Visit Report/Discharge Packet Instructions: DI for Prescription Opioid Use, DI for Transforaminal Lumbar Interbody Fusion Stand Alone Forms: Patient Portal/API, Stroke Signs & Symptoms, Surgery Discharge Discharge Data Primary Care Provider: Luz Marina Wiggins Quality VTE Deep Vein Thrombosis/Pulmonary Embolism Present on Admission: No
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
[2023-10-06 13:00] VITALS: BP 141/54; PULSE 77; RESP 17; TEMP 36.1; O2SAT 94
--- NOTE | 2023-10-06 13:56 | PC.NURSE ---
Discharge note: Discharge instructions discussed with patient and spouse, discussed importance of F/U with Ortho in October, mobility precautions, new medications and side effects, dressing care, and home safety. Both patient and spouse verbalized understanding. Home via private vehicle accompanied by spouse. Rx to be picked up on way home at [facility].
== END 2023-10-06 14:14 | disposition home or self-care (01) | DRG 455 ==
PROVIDERS: Admitting Provider Orthopaedic Surgery Orthopaedic Surgery of the Spine; PCP Registered Nurse; Referring Provider Orthopaedic Surgery Orthopaedic Surgery of the Spine; Visit Provider Orthopaedic Surgery Orthopaedic Surgery of the Spine
PROC: 0SG10AJ Fusion of 2 or more Lumbar Vertebral Joints with Interbody Fusion Device, Posterior Approach, Anterior Column, Open Approach (ICD-10-PCS; principal; 2023-10-05 09:15)
DX: M48.062 Spinal stenosis, lumbar region with neurogenic claudication (principal); M48.07 Spinal stenosis, lumbosacral region; E88.2 Lipomatosis, not elsewhere classified; M96.1 Postlaminectomy syndrome, not elsewhere classified; E78.5 Hyperlipidemia, unspecified; I10 Essential (primary) hypertension; Z87.891 Personal history of nicotine dependence
CPT/HCPCS: 36415; 72100; 76000; 85014; 85018; 97161; 97165; 97530; 97535; C1713; C9290; J0171; J0330; J0690; J1100; J1170; J2250; J2405; J2704; J3010; J3410